=== PATIENT | male | born 1965 | race American Indian/Alaskan Native ===

== ENCOUNTER 2017-12-16 00:06 | Emergency (ER) | payer SELFPAY ==
[2017-12-16 00:11] VITALS: BP 146/95
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
[2017-12-16] MEDS ORDERED: NORCO 5/325 PO ONE (04:33)
[2017-12-16] MEDS ORDERED: BOOSTRIX IM ONE (04:33)
== END 2017-12-16 04:48 | disposition home or self-care (01) ==
LOC: ED 00:06
DX: S01.01XA Laceration without foreign body of scalp, initial encounter (principal); I10 Essential (primary) hypertension; Y04.2XXA Assault by strike against or bumped into by another person, initial encounter; Y93.89 Activity, other specified; Y99.8 Other external cause status; Y92.89 Other specified places as the place of occurrence of the external cause
CPT/HCPCS: 70450; 90471; 90715

== ENCOUNTER 2017-12-24 23:11 | Emergency (ER) | payer SELFPAY ==
[2017-12-24 23:58] VITALS: BP 143/97
--- NOTE | 2017-12-25 00:39 | Emergency Department Report ---
Suture/Staple Removal - [facility] Chief Complaint: Laceration/Recheck/Suture Stated Complaint: SUTURE REMOVAL Time Seen by Provider: 12/25/17 00:38 Wound Location: pt presents for staple removal for samra placed days ago ED Review of Systems ROS: Stated complaint: SUTURE REMOVAL Other details as noted in HPI Constitutional: denies: chills, fever Eyes: denies: eye pain, eye discharge, vision change ENT: denies: ear pain, throat pain Respiratory: denies: cough, shortness of breath, wheezing Cardiovascular: denies: chest pain, palpitations Endocrine: no symptoms reported Gastrointestinal: denies: abdominal pain, nausea, diarrhea Genitourinary: denies: urgency, dysuria Musculoskeletal: denies: back pain, joint swelling, arthralgia Skin: denies: rash, lesions, pruritus Neurological: denies: headache, weakness, paresthesias Psychiatric: denies: anxiety, depression Hematological/Lymphatic: denies: easy bleeding, easy bruising ED Past Medical Hx - Past Medical History Previous Medical History?: Yes Hx Hypertension: Yes - Surgical History Past Surgical History?: No - Social History Smoking Status: Never Smoker Substance Use Type: Alcohol - Medications Home Medications: Home Medications Medication Instructions Recorded Confirmed Last Taken Type Acetaminophen/Codeine [Tylenol 1 tab PO Q6H PRN #12 tab 12/16/17 Unknown Rx /Codeine # 3 tab] Suture Removal Exam - Exam General: Vital signs noted. No distress. Alert and acting appropriately. Wound: Yes Tenderness, No Pathologic Erythema, No Drainage, No Pus, No Wound Dehiscence Other Systems: All other systems reviewed and are unremarkable. ED Course Vital Signs 12/24/17 23:55 Temperature 98.2 F Pulse Rate 96 H Respiratory 20 Rate Blood Pressure 143/97 O2 Sat by Pulse 99 Oximetry ED Recheck MDM - Differential Diagnosis Suture/Staple Removal - Medical Decision Making samra removed x 7 intact, pt tolerated procedure with minimal distress there are no syptoms of infection noted. pt will follow up with pcp in 2-3 days as scheduled. Critical care attestation.: If time is entered above; I have spent that time in minutes in the direct care of this critically ill patient, excluding procedure time. ED Disposition Clinical Impression: Removal of staple Disposition: TO HOME OR SELFCARE Is pt being admited?: No Does the pt Need Aspirin: No Condition: Good Instructions: Staple Care (ED) Referrals: [facility] [Outside] - 3-5 Days Forms: Work/School Release Form(ED) Time of Disposition: 00:44
== END 2017-12-25 00:45 | disposition home or self-care (01) ==
LOC: ED 23:11
DX: Z48.01 Encounter for change or removal of surgical wound dressing (principal)